=== PATIENT | female | born 1935 | race Caucasian/White ===

== ENCOUNTER → 2016-09-15 13:11 | Outpatient (CLI) | payer MEDICARE | END | disposition home or self-care (01) | LOC: D.US 13:11 | DX: I65.23 Occlusion and stenosis of bilateral carotid arteries (principal) ==

== ENCOUNTER → 2016-10-09 08:47 | Outpatient (CLI) | payer MEDICARE | END | disposition home or self-care (01) | LOC: D.CT 08:47 | DX: I65.23 Occlusion and stenosis of bilateral carotid arteries (principal) ==